=== PATIENT | female | born 1990 | race Caucasian/White ===

== ENCOUNTER 2018-10-17 18:50 | Emergency (ER) | payer OTHER ==
[~2018-10-17] VITALS: Ht 162.6 cm; Wt 63.6 kg
[2018-10-17 18:56] VITALS: Ht 162.6 cm; Wt 63.6 kg
[2018-10-17] MEDS ORDERED: OLANZAPINE (ODT) 5 MG TAB PO STA (18:56)
--- NOTE | 2018-10-17 20:11 | PSY ---
Date/Time of Note Date/Time of Note DATE: 10/17/18 TIME: 19:58 Psychiatric Subjective Eval Consent Pt consented to telemedicine: Yes Subjective Evaluation Patient location: emergency Chief Complaint: ALTERED LOC, PSYCHOLOGICAL BREAK History of present illness Per RN the patient had a panic attack at work yesterday and then began to deteriorate (per roommate) and has been appearing more and more altered and has been hypersexual in the ED (attempting to masturbate, asking for someone by name to come have sex with her). She apparently had a similar episode several years ago. On interview the patient stated, "David, please come home, I need you because I am hungry and need you inside of me. It's Gavino Botello I need the right combination of things to come home inside of me. I need peanut butter and jelly. I just need him to come stay with me for a long time. He's really smart. He's currently in [place]. He's related to me by blood. So hungry. I need peanut butter and jelly time. I need him to hurry home because I need his pleasure. I am smart. Seven years is too long for sex. OK, I get it. I need the blood to come inside of me. I am attracted to him." Past psychiatric history Report of a past similar incident but details unclear. Hospitalization: no Family History Unable to obtain. Allergies: Coded Allergies: No Known Allergy (Unverified , 10/17/18) Substance Abuse Substance use: other ("I was eating green stuff recently." ) Substance abuse history: No Prior substance abuse treatmen: No Social History Marital status: single DPA/Conservatorship: No Occupation/Assisted: "It's my turn to have the baby. Every seven years." Psychiatric Objective Eval Mental Status Examination: Appearance: Disheveled Eye Contact: Good Psychomotor Activity: Other (Attempting to masturbate during interview) Behavior: Cooperative Speech: Disorganized AFFECT: Appropriate Mood: Expansive Though Process: Illogical Thought Content: Obsessions (Hypersexual) Suicidal: Yes (Stated, "Yes, I need the green stuff to come inside of me.") Homicidal: No On 72 hour hold: No Orientation: x2 Insight: Impared Judgement: Impared Attention Span: Intact Laboratory Results Laboratory Tests Test 10/17/18 19:28 White Blood Count 9.0 10^3/ul Red Blood Count 4.45 10^6/ul Hemoglobin 13.8 g/dl Hematocrit 40.8 % Mean Corpuscular Volume 91.7 fl Mean Corpuscular Hemoglobin 31.0 pg Mean Corpuscular Hemoglobin Concent 33.8 g/dl Red Cell Distribution Width 11.4 % Platelet Count 294 10^3/UL Mean Platelet Volume 9.0 fl Immature Granulocytes % 0.400 % Neutrophils % 63.2 % Lymphocytes % 25.9 % Monocytes % 9.3 % Eosinophils % 0.8 % Basophils % 0.4 % Nucleated Red Blood Cells % 0.0 /100WBC Immature Granulocytes # 0.040 10^3/ul Neutrophils # 5.7 10^3/ul Lymphocytes # 2.3 10^3/ul Monocytes # 0.8 10^3/ul Eosinophils # 0.1 10^3/ul Basophils # 0.0 10^3/ul Nucleated Red Blood Cells # 0.0 10^3/ul Sodium Level 137 mmol/L Potassium Level 3.9 mmol/L Chloride Level 102 mmol/L Carbon Dioxide Level 25 mmol/L Anion Gap 10 Blood Urea Nitrogen 12 mg/dl Creatinine 0.57 mg/dl Est Glomerular Filtrat Rate mL/min > 60 mL/min Glucose Level 101 mg/dl Calcium Level 9.6 mg/dl Total Bilirubin 0.3 mg/dl Direct Bilirubin 0.00 mg/dl Indirect Bilirubin 0.3 mg/dl Aspartate Amino Transf (AST/SGOT) 20 IU/L Alanine Aminotransferase (ALT/SGPT) 17 IU/L Alkaline Phosphatase 72 IU/L Total Protein 8.0 g/dl Albumin 4.5 g/dl Globulin 3.50 g/dl Albumin/Globulin Ratio 1.28 Salicylates Level < 1.0 mg/dl Acetaminophen Level < 10.0 ug/ml Ethyl Alcohol Level < 10.0 mg/dl Assessment and Plan Assessment/Diagnosis Diagnosis Unspecified Psychosis Recommendation/Plan Multiple antipsychotics: No Discharge Disposition: Psychiatric inpatient Legal Status: Place involuntary hold Other Individual was bizarre, hypersexual and disinhibited, and disorganized. MELISSA HAZEL MD Oct 17, 2018 20:09
[2018-10-17] MEDS ORDERED: OLANZAPINE (ODT) 5 MG TAB ODT SCH (21:00)
--- NOTE | 2018-10-17 21:52 | ERD ---
ER Documentation Chief Complaint Chief Complaint ALTERED LOC, PSYCHOLOGICAL BREAK HPI Patient is a 28-year-old female with previous psych issues who presents with flight of ideas and delusions. Please note the history and physical exam is limited as the patient seems to be acutely psychotic. The patient was brought in by ambulance. She says "everything but the kitchen sink is inside my vagina". She says "on the smart one". She says "I am allergic to the sink". Please were involved as well. Her roommate was able to provide some history that the symptoms seem to start last night but were worse today. Upon review of old medical records this is the patient's first visit to the ER. ROS All systems reviewed and are negative except as per history of present illness. Allergies Allergies: Coded Allergies: No Known Allergy (Unverified , 10/17/18) PMhx/Soc Medical and Surgical Hx: pt denies Medical Hx, pt denies Surgical Hx Hx Psychiatric Problems: Yes (DEPRESSION ) Hx Miscellaneous Medical Probl: No Hx Alcohol Use: Yes (SOCIALLY) Hx Substance Use: Yes (MARIJUANA OCASSIONALLY ) Hx Tobacco Use: No Smoking Status: Never smoker FmHx Unable to obtain Physical Exam Vitals Vital Signs Date Temp Pulse Resp B/P (MAP) Pulse Ox O2 O2 Flow FiO2 Time Delivery Rate 10/17/18 98.7 16 140/91 100 19:36 (107) 10/17/18 98.7 77 16 140/91 100 18:56 (107) Physical Exam Const: Flight of ideas Head: Atraumatic Eyes: Normal Conjunctiva ENT: Normal External Ears, Nose and Mouth. Neck: Full range of motion. No meningismus. Resp: Clear to auscultation bilaterally Cardio: Regular rate and rhythm, no murmurs Abd: Soft, non tender, non distended. Normal bowel sounds Skin: No petechiae or rashes Back: No midline or flank tenderness Ext: No cyanosis, or edema Neur: Awake but with flight of ideas and delusions Psych: No obvious suicidal or homicidal ideation Result Diagram: 10/17/18192710/17/181927 Results 24 hrs Laboratory Tests Test 10/17/18 19:28 10/17/18 20:15 White Blood Count 9.0 10^3/ul Red Blood Count 4.45 10^6/ul Hemoglobin 13.8 g/dl Hematocrit 40.8 % Mean Corpuscular Volume 91.7 fl Mean Corpuscular Hemoglobin 31.0 pg Mean Corpuscular Hemoglobin Concent 33.8 g/dl Red Cell Distribution Width 11.4 % Platelet Count 294 10^3/UL Mean Platelet Volume 9.0 fl Immature Granulocytes % 0.400 % Neutrophils % 63.2 % Lymphocytes % 25.9 % Monocytes % 9.3 % Eosinophils % 0.8 % Basophils % 0.4 % Nucleated Red Blood Cells % 0.0 /100WBC Immature Granulocytes # 0.040 10^3/ul Neutrophils # 5.7 10^3/ul Lymphocytes # 2.3 10^3/ul Monocytes # 0.8 10^3/ul Eosinophils # 0.1 10^3/ul Basophils # 0.0 10^3/ul Nucleated Red Blood Cells # 0.0 10^3/ul Sodium Level 137 mmol/L Potassium Level 3.9 mmol/L Chloride Level 102 mmol/L Carbon Dioxide Level 25 mmol/L Anion Gap 10 Blood Urea Nitrogen 12 mg/dl Creatinine 0.57 mg/dl Est Glomerular Filtrat Rate mL/min > 60 mL/min Glucose Level 101 mg/dl Calcium Level 9.6 mg/dl Total Bilirubin 0.3 mg/dl Direct Bilirubin 0.00 mg/dl Indirect Bilirubin 0.3 mg/dl Aspartate Amino Transf (AST/SGOT) 20 IU/L Alanine Aminotransferase (ALT/SGPT) 17 IU/L Alkaline Phosphatase 72 IU/L Total Protein 8.0 g/dl Albumin 4.5 g/dl Globulin 3.50 g/dl Albumin/Globulin Ratio 1.28 Salicylates Level < 1.0 mg/dl Acetaminophen Level < 10.0 ug/ml Ethyl Alcohol Level < 10.0 mg/dl Urine Color COLORLESS Urine Clarity CLEAR Urine pH 6.0 Urine Specific [place] 1.001 Urine Ketones NEGATIVE mg/dL Urine Nitrite NEGATIVE mg/dL Urine Bilirubin NEGATIVE mg/dL Urine Urobilinogen NEGATIVE mg/dL Urine Leukocyte Esterase NEGATIVE Dianna/ul Urine Hemoglobin NEGATIVE mg/dL Urine Glucose NEGATIVE mg/dL Urine Total Protein NEGATIVE mg/dl Urine Opiates Screen Negative Urine Barbiturates Negative Urine Amphetamines Screen Negative Urine Benzodiazepines Screen Negative Urine Cocaine Screen Negative Urine Cannabinoids Negative Current Medications Medications Dose Sig/Dillon Start Time Status Last (Trade) Ordered Route PRN Stop Time Admin Dose Reason Admin Olanzapine 5 mg ONCE STAT 10/17/18 DC 10/17/18 (Zyprexa PO 18:56 19:32 Zydis) 10/17/18 18:58 Olanzapine 5 mg BID ODT 10/17/18 (Zyprexa 21:00 Zydis) Procedures/MDM Patient is a 28-year-old female who presents with acute psychosis. The patient was given Zyprexa. She has significant delusions and flight of ideas. She was seen by psychiatry who recommended a 5150 hold for inpatient psychiatry. Laboratory studies and urine sample were basically negative. I doubt organic cause of her symptoms at this time and I believe she has acute psychosis. The patient will need to be transferred for inpatient psych and we are attempting to find a facility at this time. Departure Diagnosis: Primary Impression: Acute psychosis Condition: LISS Polo MD Oct 17, 2018 21:52
[2018-10-18 15:06] VITALS: BP 126/78; PULSE 82; RESP 18
== END 2018-10-18 15:05 ==
LOC: E/R 18:50
DX: F23 Brief psychotic disorder (principal)
CPT/HCPCS: 80053; 80307; 81003; 84703; 85025